=== PATIENT | female | born 1950 | race Caucasian/White ===

== ENCOUNTER → 2023-04-17 | Outpatient (CLI) | payer MEDICARE ==
--- NOTE | 2023-04-17 11:41 | Diagnostic Imaging Report ---
INDICATION: WT LOSS TOBACCOISM COMPARISON: None FINDINGS: Frontal and lateral views of the chest demonstrate normal heart size and pulmonary vascularity. The lungs are clear. There are no signs of infiltrate, pleural effusions or pneumothoraces. The visualized osseous structures show no acute abnormalities. IMPRESSION: 1. No acute process. No signs of infiltrates, effusions or pneumothoraces. Dictated by: Dictated on workstation # [id number]
== END ==
LOC: RAD 10:38
PROVIDERS: ATTEND Internal Medicine
DX: R63.4 Abnormal weight loss (principal); Z72.0 Tobacco use
CPT/HCPCS: 71046